=== PATIENT | female | born 1955 | race Hispanic/Latino ===

== ENCOUNTER 2017-08-15 12:55 | Outpatient (CLI) | payer OTHER ==
--- NOTE | 2017-08-19 09:38 | Mammography Report ---
BILATERAL DIGITAL SCREENING MAMMOGRAM with CAD: 08/15/17 12:55:00 CLINICAL: Routine screening.Previous left surgical excision. COMPARISON: 2012,2013 and 2014 mammograms from [facility] FINDINGS: There are bilateral scattered areas of fibroglandular density.Mild left upper outer postsurgical scar.No mass, suspicious architectural distortion or suspicious calcifications. IMPRESSION: No mammographic evidence of malignancy. BI-RADS CATEGORY: 2 - - Benign RECOMMENDATION: Routine mammographic screening in one year. COMMENT: Patient follow-up letters are generated by our [employer] application.
== END 2017-08-15 12:56 | disposition home or self-care (01) ==
LOC: MAMMO 12:55 → XRAY 12:55 → MAMMO 12:56
PROVIDERS: ATTEND Internal Medicine
DX: Z12.31 Encounter for screening mammogram for malignant neoplasm of breast (principal); F17.200 Nicotine dependence, unspecified, uncomplicated
CPT/HCPCS: 77067; G0202

== ENCOUNTER 2017-08-15 13:29 | Outpatient (CLI) | payer OTHER ==
--- NOTE | 2017-08-15 13:56 | XRay Report ---
Chest 2 views: History chest. Findings: Normal cardiomediastinal silhouette. Trachea is midline. No consolidation, pneumothorax or pleural effusion. Impression: No acute cardiopulmonary findings.
== END 2017-08-15 13:30 | disposition home or self-care (01) ==
LOC: XRAY 13:29
PROVIDERS: ATTEND Internal Medicine
DX: Z00.01 Encounter for general adult medical examination with abnormal findings (principal); F17.200 Nicotine dependence, unspecified, uncomplicated
CPT/HCPCS: 71020